=== PATIENT | female | born 1970 ===

== ENCOUNTER 2016-09-03 14:43 | Outpatient (CLI) | payer BC ==
--- NOTE | 2016-09-04 08:57 | Magnetic Resonance Report ---
MRI PELVIS WITHOUT CONTRAST: 10/01/16 CLINICAL: Pelvic pain and bleeding. COMPARISON :None. TECHNIQUE: Sagittal, coronal and axial T1 and T2 fat sat sequences without contrast on a 1.5 Rekha magnet. The patient asked to and the examination prior to administration of contrast. FINDINGS: A mildly enlarged fibroid uterus measures approximately 11 cm in length by 6.0 cm AP dimension by 7.3 cm transverse dimension. Largest fibroid is located intramural to the left of midline uterine fundus and measures 5.5 x 5.0 x 3.8 cm. The next largest is a 2 cm submucosal fibroid to the right of midline in the uterine body. The endometrium is mildly thickened and measures 9 mm. The left ovary is normal with small follicles area measures approximately 2.4 x 2.0 x 1.8 cm with a dominant 1.3 cm follicle. A right ovary is not confidently identified. Mild free pelvic fluid. Normal rectum and urinary bladder. The bones and soft tissues are normal. Imaged portions of large and small bowel are unremarkable. IMPRESSION: 1. A mildly enlarged fibroid uterus with a dominant 5.5 cm intramural fibroid. 2. A 2 cm submucosal fibroid. 3. Normal left ovary and no right ovary identified. 4. Physiologic free fluid in the pelvis.
== END 2016-09-03 14:44 | disposition home or self-care (01) ==
LOC: SPVIMAG 14:43
PROVIDERS: ATTEND Radiology Vascular & Interventional Radiology
DX: N93.9 Abnormal uterine and vaginal bleeding, unspecified (principal); N85.2 Hypertrophy of uterus; D25.0 Submucous leiomyoma of uterus; Z90.721 Acquired absence of ovaries, unilateral
CPT/HCPCS: 72195